=== PATIENT | female | born 1960 | race Caucasian/White ===

== ENCOUNTER → 2017-01-17 | Outpatient (CLI) | payer MEDICARE ==
[~2017-01-17] MED LIST: AUGMENTIN 875-1 EACH PO; LORTAB 5-325 M1 EACH PO; MIRALAX17 GM PO; PEPCID40 MG PO; XANAX PO
== END ==
DX: Z12.31 Encounter for screening mammogram for malignant neoplasm of breast (principal); Z80.3 Family history of malignant neoplasm of breast
CPT/HCPCS: G0202

== ENCOUNTER → 2017-01-31 | Day surgery (SDC) | payer MEDICARE | END | disposition home or self-care (01) | LOC: OR 07:02 | PROVIDERS: Internal Medicine Gastroenterology | PROC: 0DB68ZX Excision of Stomach, Via Natural or Artificial Opening Endoscopic, Diagnostic (ICD-10-PCS; principal; 2017-01-31 10:00) | DX: K29.71 Gastritis, unspecified, with bleeding (principal); K44.9 Diaphragmatic hernia without obstruction or gangrene; J44.9 Chronic obstructive pulmonary disease, unspecified; K21.9 Gastro-esophageal reflux disease without esophagitis; M06.9 Rheumatoid arthritis, unspecified; F17.210 Nicotine dependence, cigarettes, uncomplicated; Z83.3 Family history of diabetes mellitus; Z82.49 Family history of ischemic heart disease and other diseases of the circulatory system; Z80.8 Family history of malignant neoplasm of other organs or systems; Z80.0 Family history of malignant neoplasm of digestive organs; Z88.5 Allergy status to narcotic agent; Z88.6 Allergy status to analgesic agent; Z88.8 Allergy status to other drugs, medicaments and biological substances; Z90.49 Acquired absence of other specified parts of digestive tract; Z90.710 Acquired absence of both cervix and uterus; Z90.89 Acquired absence of other organs; Z98.890 Other specified postprocedural states | CPT/HCPCS: J2250; J3010; J3370; J7030 ==